=== PATIENT | male | born 1960 | race Caucasian/White ===

== ENCOUNTER → 2017-03-29 | Day surgery (SDC) | payer BC ==
[2014-01-04 05:42] VITALS: BP 115/68
[~2017-03-29] MED LIST: LISINOPRIL/HCTZ1 TA2 PO; PROTONIX20 MG PO
== END ==
LOC: MSO 07:23
DX: Z12.11 Encounter for screening for malignant neoplasm of colon (principal); I10 Essential (primary) hypertension
CPT/HCPCS: G0121; 00810; J3010; J7120